=== PATIENT | female | born 1970 | race African-American/Black ===

== ENCOUNTER 2019-03-29 11:32 | Emergency (ER) | payer MEDICAID ==
[~2019-03-29] VITALS: Ht 172.7 cm; Wt 72.0 kg
[2019-03-29 13:15] VITALS: BP 127/89
[2019-03-29 14:23] LABS: CHLORIDE 109 mEq/L (98-107)
[2019-03-29 14:29] LABS: HCG SCREEN NEGATIVE
[2019-03-29 14:35] LABS: EOSINOPHILS % 2.7 % (0.0-5.0); HEMATOCRIT. 23.2 % (36.0-48.0); HEMOGLOBIN. 7.8 g/dL (12.0-16.0); LYMPHOCYTES % 28.4 % (20.0-50.0); MEAN CORPUSCULAR HEMOGLOBIN 27.9 pg (28.0-32.0); MEAN CORPUSCULAR VOLUME 83.3 fL (81.0-99.0); MEAN PLATELET VOLUME 7.5 fl (7.4-10.4); MONOCYTES % 6.7 % (2.0-8.0); NEUTROPHILS % 61.2 % (40.0-76.0); PLATELET 325 x1000/uL (130-400); RED BLOOD CELL COUNT 2.79 mill/uL (4.2-5.4); RED CELL DISTRIBUTION WIDTH 16.2 % (11.6-14.6)
== END 2019-03-29 15:47 | disposition home or self-care (01) ==
LOC: ER 11:32
DX: N93.8 Other specified abnormal uterine and vaginal bleeding (principal); D53.9 Nutritional anemia, unspecified; Z98.51 Tubal ligation status
CPT/HCPCS: 36415; 84703; 99283

== ENCOUNTER 2020-12-11 14:38 | Inpatient (IN) | payer MEDICAID, OTHER ==
[~2020-12-11] VITALS: Ht 167.6 cm; Wt 74.4 kg
[2020-12-11] MEDS ORDERED: ONDANSETRON HCL 4MG/2ML INJ IV STA (16:46)
[2020-12-11] MEDS ORDERED: ACETAMINOPHEN 325MG TABLET PO ONE (17:00)
[2020-12-11] MEDS ORDERED: SODIUM CHLORIDE 0.9% 1,000 ML IV ONE (17:00)
[2020-12-11 17:24] LABS: BASOPHILS % 0.1 % (0.0-2.0); EOSINOPHILS % 0.2 % (0.0-5.0); HEMATOCRIT. 34.8 % (36.0-48.0); HEMOGLOBIN. 11.5 g/dL (12.0-16.0); LYMPHOCYTES % 8.4 % (20.0-50.0); MEAN CORPUSCULAR HEMOGLOBIN 29.1 pg (28.0-32.0); MEAN PLATELET VOLUME 7.9 fl (7.4-10.4); MONOCYTES % 5.2 % (2.0-8.0); NEUTROPHILS % 86.1 % (40.0-76.0); PLATELET 241 x1000/uL (130-400); RED BLOOD CELL COUNT 3.95 mill/uL (4.2-5.4); RED CELL DISTRIBUTION WIDTH 13.5 % (11.6-14.6)
[2020-12-11 17:31] LABS: INR 1.1; PROTHROMBIN TIME 12.1 sec (9.6-11.0)
[2020-12-11 17:36] LABS: CHLORIDE 107 mEq/L (98-107)
[2020-12-11 17:39] LABS: ETHANOL BLOOD < 10 mg/dL
[2020-12-11 17:53] LABS: HCG SCREEN NEGATIVE
[2020-12-11 18:07] LABS: CLARITY URINE CLOUDY (CLEAR); COLOR URINE DARK YELLOW (YELLOW); KETONES URINE TRACE (NEGATIVE); LEUKOCYTE ESTERASE URINE 1+ (NEGATIVE); NITRITE URINE POSITIVE (NEGATIVE); OCCULT BLOOD URINE 3+ (NEGATIVE); PROTEIN URINE 2+ (NEGATIVE); SPECIFIC GRAVITY URINE 1.019 (1.005-1.030)
[2020-12-11 18:19] LABS: *AMPHETAMINES SCREEN URINE NEGATIVE (NEGATIVE); *BARBITURATES SCREEN URINE NEGATIVE (NEGATIVE); *BENZODIAZEPINES SCREEN URINE NEGATIVE (NEGATIVE); *COCAINE SCREEN URINE NEGATIVE (NEGATIVE); CANNABINOID URINE SCREEN PRESUMTIVE POSITIVE (NEGATIVE); METHADONE URINE SCREEN NEGATIVE (NEGATIVE); OPIATES URINE SCREEN NEGATIVE (NEGATIVE); PHENCYCLIDINE URINE SCREEN NEGATIVE (NEGATIVE)
[2020-12-11] MEDS ORDERED: MORPHINE SULFATE 4 MG/ML CPJ (NOT FOR IM USE) IV NR (19:15)
[2020-12-11] MEDS ORDERED: CEFTRIAXONE 1 G PREMIX 50 ML IV NR (19:15)
[2020-12-12 03:00] VITALS: BP 120/82
[2020-12-12] MEDS ORDERED: DEXT 5%/0.45% NACL KCL 20MEQ/L 1,000 ML IV SCH (05:30)
[2020-12-12 08:00] VITALS: BP 120/73
[2020-12-12 08:37] VITALS: BP 120/73
[2020-12-12 12:00] VITALS: BP 122/77
[2020-12-12 16:03] LABS: BASOPHILS % 0.1 % (0.0-2.0); EOSINOPHILS % 0.4 % (0.0-5.0); HEMATOCRIT. 32.3 % (36.0-48.0); HEMOGLOBIN. 10.9 g/dL (12.0-16.0); LYMPHOCYTES % 9.3 % (20.0-50.0); MEAN CORPUSCULAR HEMOGLOBIN 29.5 pg (28.0-32.0); MEAN PLATELET VOLUME 7.9 fl (7.4-10.4); MONOCYTES % 5.1 % (2.0-8.0); NEUTROPHILS % 85.1 % (40.0-76.0); PLATELET 252 x1000/uL (130-400); RED BLOOD CELL COUNT 3.71 mill/uL (4.2-5.4); RED CELL DISTRIBUTION WIDTH 13.6 % (11.6-14.6)
[2020-12-12 16:12] LABS: CHLORIDE 108 mEq/L (98-107)
[2020-12-12] MEDS ORDERED: AZITHROMYCIN 500 MG TABLET PO NR (17:00)
[2020-12-12 18:00] VITALS: BP 121/81
[2020-12-12] MEDS ORDERED: CEFTRIAXONE 1,000 MG in DEXTROSE 5% WATER 50 ML IV SCH (18:00)
[2020-12-12 20:00] VITALS: BP 129/89
[2020-12-12] MEDS: ACETAMINOPHEN 325MG TABLET PO PRN (20:52)
[2020-12-12] MEDS: DEXT 5%/0.45% NACL KCL 20MEQ/L 1,000 ML IV SCH (20:53)
[2020-12-13] VITALS: BP 108/77
[2020-12-13 04:00] VITALS: BP 131/70
[2020-12-13] MEDS: DEXT 5%/0.45% NACL KCL 20MEQ/L 1,000 ML IV SCH (06:07)
[2020-12-13] MEDS ORDERED: LEVO500T89 MT (08:13)
[2020-12-13] MEDS: ACETAMINOPHEN 325MG TABLET PO PRN (08:35)
[2020-12-13] MEDS ORDERED: AZITHROMYCIN 250 MG TABLET PO SCH (09:00)
[2020-12-13 11:05] LABS: BASOPHILS % 0.4 % (0.0-2.0); EOSINOPHILS % 0.3 % (0.0-5.0); HEMATOCRIT. 32.2 % (36.0-48.0); HEMOGLOBIN. 10.7 g/dL (12.0-16.0); LYMPHOCYTES % 15.7 % (20.0-50.0); MEAN CORPUSCULAR HEMOGLOBIN 28.8 pg (28.0-32.0); MEAN CORPUSCULAR VOLUME 86.7 fL (81.0-99.0); MEAN PLATELET VOLUME 7.6 fl (7.4-10.4); MONOCYTES % 6.3 % (2.0-8.0); NEUTROPHILS % 77.3 % (40.0-76.0); PLATELET 249 x1000/uL (130-400); RED BLOOD CELL COUNT 3.71 mill/uL (4.2-5.4); RED CELL DISTRIBUTION WIDTH 13.9 % (11.6-14.6)
[2020-12-13 11:10] LABS: CHLORIDE 109 mEq/L (98-107)
[2020-12-13 14:27] VITALS: BP 151/97
== END 2020-12-13 14:52 | disposition home or self-care (01) | DRG 720 ==
LOC: ER 14:38 → MICUSO 12-12 01:53 → 7EST 12-12 02:18
PROVIDERS: ADMIT Internal Medicine; ATTEND Internal Medicine
DX: A41.50 Gram-negative sepsis, unspecified (principal); E44.1 Mild protein-calorie malnutrition; J18.9 Pneumonia, unspecified organism; D25.9 Leiomyoma of uterus, unspecified; D64.9 Anemia, unspecified; F12.90 Cannabis use, unspecified, uncomplicated; Z20.822 Contact with and (suspected) exposure to COVID-19; N39.0 Urinary tract infection, site not specified; Z82.49 Family history of ischemic heart disease and other diseases of the circulatory system; Z98.51 Tubal ligation status; Z68.26 Body mass index [BMI] 26.0-26.9, adult
CPT/HCPCS: 36415; 74176; 76830; 76856; 80048; 80053; 80305; 80320; 81003; 83605; 84703; 85025; 87186; 87426; 93005; 99291; J0696; J2270; J2405; J7030; J7060; G0480

== ENCOUNTER 2023-07-09 21:27 | Emergency (ER) | payer MEDICAID, OTHER ==
[~2023-07-09] VITALS: Ht 167.6 cm; Wt 73.0 kg
[~2023-07-09 21:27] MED LIST: LEVO-65 MT
[2023-07-09 21:30] VITALS: BP 176/112; PULSE 105; RESP 20; TEMP 98.6; O2SAT 99
[2023-07-09] MEDS ORDERED: IPRATROPIUM BROMIDE (0.02%) 0.5MG/2.5ML NEB HHN STA (23:14)
[2023-07-09] MEDS ORDERED: ALBUTEROL (0.083%) 2.5MG/3ML NEB HHN STA (23:14)
[2023-07-09] MEDS: PREDNISONE 20MG TABLET PO STA (23:40)
[2023-07-10] MEDS ORDERED: PRED10TA MT (01:54)
[2023-07-10] MEDS ORDERED: BENZ100C86 MT (01:54)
== END 2023-07-10 02:54 | disposition home or self-care (01) ==
LOC: ER 21:27
DX: J45.909 Unspecified asthma, uncomplicated (principal); I10 Essential (primary) hypertension
CPT/HCPCS: 99283; 71045; J7512